=== PATIENT | female | born 1990 | race Caucasian/White ===

== ENCOUNTER 2017-11-14 09:25 | Emergency (ER) | payer OTHER ==
--- NOTE | 2017-11-14 09:30 | PDOC ---
History of Present Illness - General Chief Complaint: Pain Stated Complaint: ABDOMINAL PAIN Time Seen by Provider: 11/14/17 09:29 History Source: Patient Exam Limitations: No Limitations - History of Present Illness Initial Comments: 11/14/17 09:45 This Is Her Baseline Is a 27-year-old Female Presented to Emergency Department with a Complaint of Gastritis. Patient States That Possibly 2 Months Ago She Noted Epigastric Burning. She Was Seen at an Urgent Care Where She Was Started on Prilosec. Her Symptoms Completely Resolved on the Prilosec. Her Symptoms Return Once the Prilosec Ran out. Since Then She Has Been Taking [id number] Antacids after Each Meal. She Feels Nauseous, Has Not Vomited. She Denies Diarrhea. She Denies Fevers or Chills. She Denies Actual Abdominal Pain. 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 GENERAL/CONSTITUTIONAL: No: fever, chills, weakness, loss of appetite. HEAD, EYES, EARS, NOSE AND THROAT: No: change in vision, ear pain, discharge, sore throat, throat swelling. CARDIOVASCULAR: No: chest pain, lightheadedness, palpitations, syncope RESPIRATORY: No: cough, shortness of breath, wheezing, hemoptysis, stridor. GASTROINTESTINAL: Yes: epigastric discomfort, occasional nausea No: vomiting, diarrhea, lower abdominal pain GENITOURINARY: No: dysuria, hematuria, frequency, urgency, flank pain. MUSCULOSKELETAL: No: back pain SKIN: No: lesions, pallor, rash or easy bruising. NEUROLOGIC: No: headache, vertigo, paresthesias, weakness EXAM: GENERAL: The patient is in no acute distress. HEAD: Normal with no signs of trauma. EYES: PERRLA, EOMI, sclera anicteric, conjunctiva clear. ENT: Ears normal, nares patent, oropharynx clear without exudates. Moist mucous membranes. NECK: Normal range of motion, supple without lymphadenopathy, JVD, or masses. LUNGS: Breath sounds equal, clear to auscultation bilaterally. No wheezes, and no crackles. HEART:Regular rate and rhythm, normal S1 and S2 without murmur, rub or gallop. ABDOMEN: Soft, nontender, normoactive bowel sounds. No guarding, no rebound. No masses palpable. EXTREMITIES: Normal range of motion, no edema. No clubbing or cyanosis. No erythema, or tenderness. NEUROLOGICAL: Cranial nerves II through XII grossly intact. Normal speech. No focal neurological deficits. MUSCULOSKELETAL: Back non-tender to palpation, no CVA tenderness SKIN: Warm, Dry, normal turgor, no rashes or lesions noted. 11/14/17 09:48 Past History - Past Medical History Allergies/Adverse Reactions: Allergies Allergy/AdvReac Type Severity Reaction Status Date / Time No Known Allergies Allergy Verified 11/14/17 09:32 Home Medications: Ambulatory Orders Omeprazole 20 mg PO DAILY #30 capsule. 11/14/17 Sucralfate [Carafate -] 1 gm PO BID #30 tablet 11/14/17 Medical Decision Making - Medical Decision Making 11/14/17 09:49 DD: Gastritis, Peptic ulcer disease, unlikely pancreatitis given history Will : Discharge to home Have pt follow up with [facility] or Dr Cisneros Will prescribe Omeprazole and Carafate Return to the ER for any other concerns or complaints Clinical Impression: Gastritis, initial presentation *DC/Admit/Observation/Transfer Diagnosis at time of Disposition: Gastritis - Discharge Dispostion Disposition: HOME Condition at time of disposition: Stable Decision to Admit order: No - Prescriptions Prescriptions: Omeprazole 20 mg PO DAILY #30 capsule.dr Gonzales [Carafate -] 1 gm PO BID #30 tablet - Referrals Referrals: Irving Cisneros MD [Staff Physician] - - Patient Instructions Printed Discharge Instructions: Gastritis (Alternative Therapy), Roberts Diet, DI for Gastritis Additional Instructions: Thank you for coming into the emergency Department today. Please resume taking Prilosec, this is prescribed for you. You can also take Carafate as needed for your pain. Please follow-up with [facility], they have glass block bender there. You can also try calling Dr. Cisneros's office Return to the ER for any other concerns or complaints - Post Discharge Activity
[2017-11-14 09:34] VITALS: BP 124/86; PULSE 69; TEMP 98.9; BMI 37.8
== END 2017-11-14 10:00 | disposition home or self-care (01) ==
LOC: FER 09:27
DX: K52.9 Noninfective gastroenteritis and colitis, unspecified (principal)
CPT/HCPCS: 99282-25